=== PATIENT | female | born 1995 | race Caucasian/White ===

== ENCOUNTER 2020-03-12 07:54 | Emergency (ER) | payer SELFPAY ==
[~2020-03-12] VITALS: Ht 154.9 cm; Wt 41.4 kg
[2020-03-12 08:05] VITALS: Ht 154.9 cm; Wt 41.4 kg
[2020-03-12 11:34] VITALS: BP 97/53
== END 2020-03-12 11:34 | disposition home or self-care (01) ==
LOC: ED 07:54
DX: N12 Tubulo-interstitial nephritis, not specified as acute or chronic (principal); N73.9 Female pelvic inflammatory disease, unspecified
CPT/HCPCS: 87491; 87591; J0696